=== PATIENT | female | born 1985 | race Caucasian/White ===

== ENCOUNTER 2023-10-12 09:22 | Emergency (ER) | payer SELFPAY ==
[2023-10-12 09:29] VITALS: BP 149/87; PULSE 88; TEMP 37.1; O2SAT 100; BMI 27.1
[2023-10-12 10:13] LABS: Influenza Virus A Antigen Positive; Influenza Virus B Antigen Negative
[2023-10-12 10:14] LABS: Internal Control Within Normal Limits; SARS-CoV-2 Ag NEGATIVE (NEGATIVE); Strep A Antigen Screen Negative
--- NOTE | 2023-10-12 10:27 | ED.URI1 ---
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 and she has been exposed to a client to have similar symptoms, no nausea no vomiting but the patient have diarrhea Related Data Previous Rx's ?Medication ?Instructions ?Recorded oseltamivir 75 mg capsule (Tamiflu) 75 mg PO BID 5 days #10 caps 10/12/23 Allergies Allergy/AdvReac Type Severity Reaction Status Date / Time Sulfa (Sulfonamide Allergy Severe Anaphylaxis Verified 10/12/23 09:28 Antibiotics) Review of Systems ROS Status of ROS 10 or more systems reviewed and unremarkable except as noted in history and below Exam Narrative Exam Narrative: Nurses notes and vital signs reviewed and patient is not hypoxic. General: Well-appearing and in no apparent distress. Skin: Warm, dry, no pallor noted. No rash. Head: Normocephalic, atraumatic. Neck: Supple, non-tender. Eye: Pupils are equal, round and EOMI. No scleral icterus. Ears, Nose, Mouth, and Throat: TM are clear, no nasal mucosal hypertrophy. Oral mucosa is moist, no posterior oropharynx erythema, uvula is mid-line Cardiovascular: Regular Rate and Rhythm without murmur, gallop or rub. Respiratory: No accessory muscle use or respiratory distress. Lungs are clear to auscultation, no wheezing, rales or rhonchi Chest Wall: no tenderness Back: No midline thoracic or lumbar vertebral tenderness. No CVA tenderness Musculoskeletal: normal ROM, no calf or popliteal tenderness, no lower extremity edema/swelling GI: Abdomen is soft, non-distended. Normal bowel sounds. No masses appreciated. No tenderness to palpation. No rebound, guarding, or rigidity noted. Neurological: A&O x4. No cranial nerve dysfunction observed. No truncal ataxia. Moves all extremities. Sensation intact. Psychiatric: Cooperative and interactive. Normal mood and affect. Constitutional Vital Signs, click to edit/add: Last Vital Signs Temp 98.8 F 10/12/23 09:29 Pulse 88 10/12/23 09:29 Resp 20 10/12/23 09:29 BP 149/87 H 10/12/23 09:29 Pulse Ox 100 10/12/23 09:29 O2 Del Method Room Air 10/12/23 09:29 Course Vital Signs Vital signs: Vital Signs Temperature 98.8 F 10/12/23 09:29 Pulse Rate 88 10/12/23 09:29 Respiratory Rate 20 10/12/23 09:29 Blood Pressure 149/87 H 10/12/23 09:29 Pulse Oximetry 100 10/12/23 09:29 Oxygen Delivery Method Room Air 10/12/23 09:29 Temperature 98.8 F 10/12/23 09:29 Pulse Rate 88 10/12/23 09:29 Respiratory Rate 20 10/12/23 09:29 Blood Pressure 149/87 H 10/12/23 09:29 Pulse Oximetry 100 10/12/23 09:29 Oxygen Delivery Method Room Air 10/12/23 09:29 MDM - URI/Sore Throat MDM Narrative Medical decision making narrative: The patient presenting with a typical viral illness symptoms she was positive for influenza A Right now she is to continue supportive care at home The patient is to follow up with primary care physician in next 2-3 days or to return to the emergency department should any of the signs or symptoms worsen or new symptoms develop. The patient agrees with the following Diagnosis and Treatment plan and the patient will be discharged home. Lab Data Labs: Lab Results 10/12/23 Range/Units 09:45 Influenza Type A Ag Positive A Influenza Type B Ag Negative SARS-CoV-2 Ag (CV2AG) Negative (NEGATIVE) Streptococcus Screen Negative Discharge Plan Discharge Stand Alone Forms: Portal Instructions Chief Complaint: Upper Respiratory Infection Clinical Impression: Flu Patient Disposition: Home, Self-Care Time of Disposition Decision: 10:25 Condition: Good Prescriptions / Home Meds: New oseltamivir [Tamiflu] 75 mg capsule 75 mg PO BID 5 Days Qty: 10 0RF Print Language: Kinyarwanda Instructions: Influenza (DC) Referrals: Physician,Non-Staff, MD [Primary Care Provider] - 1 week
== END 2023-10-12 10:31 | disposition home or self-care (01) ==
PROVIDERS: Emergency Provider Emergency Medicine
DX: J10.1 Influenza due to other identified influenza virus with other respiratory manifestations (principal); Z20.822 Contact with and (suspected) exposure to COVID-19
CPT/HCPCS: 87070; 87804; 87811; 87880; 99283